=== PATIENT | female | born 1930 | race Asian ===

== ENCOUNTER 2019-01-29 09:08 | Inpatient (IN) | payer MEDICARE, BC ==
[2019-01-29 11:25] LABS: ADD MAN DIFF? NO
[2019-01-29 11:27] LABS: BASOPHIL # 0.1 10^3/ul (0.0-0.1); BASOPHILS % 0.8 % (0.0-2.0); EOSINOPHILS # 0.1 10^3/ul (0.0-0.5); EOSINOPHILS % 1.4 % (0.0-7.0); HEMATOCRIT 39.2 % (37.0-47.0); LYMPHOCYTES # 1.5 10^3/ul (0.8-2.9); LYMPHOCYTES % 17.5 % (15.0-51.0); MEAN CORPUSCULAR HEMOGLOBIN 28.2 pg (29.0-33.0); MEAN CORPUSCULAR HGB CONC 33.2 g/dl (32.0-37.0); MEAN PLATELET VOLUME 10.7 fl (7.4-10.4); MONOCYTE # 0.7 10^3/ul (0.3-0.9); MONOCYTES % 8.2 % (0.0-11.0); NEUTROPHIL # 6.2 10^3/ul (1.6-7.5); NEUTROPHILS % 71.8 % (39.0-77.0); PLATELET COUNT 232 10^3/UL (140-415); RED BLOOD COUNT 4.61 10^6/ul (4.20-5.40); RED CELL DISTRIBUTION WIDTH 13.8 % (11.5-14.5)
[2019-01-29 11:27] LABS: WHITE BLOOD COUNT 8.7 10^3/ul (4.8-10.8)
[2019-01-29 11:48] LABS: ALANINE AMINOTRANSFERASE 28 IU/L (13-69); ALBUMIN/GLOBULIN RATIO 1.17; ALKALINE PHOSPHATASE 114 IU/L (42-121); ANION GAP 11 (5-13); ASPARTATE AMINO TRANSFERASE 39 IU/L (15-46); BILIRUBIN,INDIRECT 0.3 mg/dl (0-1.1); BILIRUBIN,TOTAL 0.3 mg/dl (0.2-1.3); BLOOD UREA NITROGEN 24 mg/dl (7-20); CALCIUM 9.8 mg/dl (8.4-10.2); CARBON DIOXIDE 26 mmol/L (21-31); CHLORIDE 99 mmol/L (97-110); CREATININE 1.02 mg/dl (0.44-1.00); GLUCOSE 161 mg/dl (70-220); POTASSIUM 4.9 mmol/L (3.5-5.1); SODIUM 136 mmol/L (135-144); TOTAL PROTEIN 7.4 g/dl (6.1-8.1)
[2019-01-29 11:52] LABS: INR 0.89; PARTIAL THROMBOPLASTIN TIME 27.8 Sec (23.0-35.0); PROTIME 12.2 Sec (11.9-14.9)
[2019-01-29 11:58] LABS: B-TYPE NATRIURETIC PEPTIDE 448 PG/ML (0-450); TROPONIN-I < 0.012 ng/ml (0.000-0.120)
[2019-01-29] MEDS: ALBUTEROL/IPRATROPIUM (NEB) 3 ML AMP HHN ×3 (15:04→22:06)
[2019-01-29] MEDS: SOD CHLORIDE 0.9% 100 ML (15:07)
[2019-01-29] MEDS ORDERED: ONDANSETRON 4 MG INJ IV ×2 (15:30→16:30)
[2019-01-29] MEDS ORDERED: ACETAMINOPHEN 325 MG TAB PO (15:30)
[2019-01-29] MEDS ORDERED: NACL 0.9% 3 ML SYG IV (16:30)
[2019-01-29] MEDS ORDERED: NITROGLYCERIN (SL) 0.4 MG TAB SL (16:30)
[2019-01-29] MEDS ORDERED: morphine 2 MG INJ IV (16:30)
[2019-01-29] MEDS ORDERED: hydrALAzine 20 MG INJ IV ×2 (16:30→17:30)
[2019-01-29] MEDS: INSULIN ASPART [NOVOLOG] 3 ML PEN SC ×2 (17:00→21:00)
[2019-01-29] MEDS ORDERED: GLUCAGON 1 MG INJ IM (17:00)
[2019-01-29] MEDS ORDERED: DEXTROSE 50% 50 ML SYRINGE IV ×2 (17:00)
[2019-01-29] MEDS ORDERED: GLUCOSE GEL 15 GRAM TUBE PO ×2 (17:00)
[2019-01-29] MEDS ORDERED: GLUCOSE GEL 15 GRAM TUBE BUCCAL (17:00)
[2019-01-29] MEDS: FUROSEMIDE 20 MG INJ IV (17:57)
[2019-01-29 18:04] LABS: FREE T4 (FREE THYROXINE) 1.56 ng/dl (0.85-1.93)
[2019-01-29 18:15] LABS: LACTIC ACID 1.4 mmol/L (0.5-2.0)
[2019-01-29 18:16] LABS: CREATINE KINASE 249 IU/L (23-200)
[2019-01-29 18:28] LABS: CK INDEX 1.5; CK-MB 3.68 ng/ml (0.0-2.4); TROPONIN-I < 0.012 ng/ml (0.000-0.120)
[2019-01-29] MEDS ORDERED: NON-FORMULARY/PATIENT OWN MED (Simvastatin* (Zocor*) 10 MG) PO (21:00)
[2019-01-29] MEDS: ATORVASTATIN 10 MG TAB PO (21:51)
[2019-01-29] MEDS: LEVOFLOXACIN 500MG/D5W (PMX) 100 ML IVPB (21:51)
[2019-01-29] MEDS: GABAPENTIN 100 MG CAP PO (21:52)
[2019-01-29 22:32] LABS: CREATINE KINASE 256 IU/L (23-200)
[2019-01-29] MEDS: LORAZEPAM 2 MG INJ IV (22:34)
[2019-01-29 22:46] LABS: CK INDEX 1.6; CK-MB 4.22 ng/ml (0.0-2.4); TROPONIN-I 0.015 ng/ml (0.000-0.120)
[2019-01-29] MEDS: SOD CHLORIDE 0.9% 500 ML IV (23:56)
[2019-01-30] MEDS: ACETAMINOPHEN 325 MG TAB PO (00:46)
[2019-01-30] MEDS: INSULIN ASPART [NOVOLOG] 3 ML PEN SC ×6 (01:00→20:44)
[2019-01-30] MEDS: ALBUTEROL/IPRATROPIUM (NEB) 3 ML AMP HHN ×3 (01:49→09:48)
[2019-01-30] MEDS: ACCU-CHEK XX (02:00)
[2019-01-30 06:50] LABS: ADD MAN DIFF? NO
[2019-01-30 06:59] LABS: BASOPHIL # 0.1 10^3/ul (0.0-0.1); BASOPHILS % 0.7 % (0.0-2.0); EOSINOPHILS # 0.2 10^3/ul (0.0-0.5); HEMATOCRIT 38.9 % (37.0-47.0); HEMOGLOBIN 12.8 g/dl (12.0-16.0); LYMPHOCYTES # 2.6 10^3/ul (0.8-2.9); LYMPHOCYTES % 26.1 % (15.0-51.0); MEAN CORPUSCULAR HEMOGLOBIN 27.9 pg (29.0-33.0); MEAN CORPUSCULAR HGB CONC 32.9 g/dl (32.0-37.0); MEAN CORPUSCULAR VOLUME 84.9 fl (82.0-101.0); MEAN PLATELET VOLUME 11.1 fl (7.4-10.4); MONOCYTE # 0.8 10^3/ul (0.3-0.9); MONOCYTES % 8.4 % (0.0-11.0); NEUTROPHIL # 6.2 10^3/ul (1.6-7.5); NEUTROPHILS % 62.4 % (39.0-77.0); PLATELET COUNT 226 10^3/UL (140-415); RED BLOOD COUNT 4.58 10^6/ul (4.20-5.40)
[2019-01-30 07:18] LABS: CHOLESTEROL 154 mg/dl (100-200)
[2019-01-30 07:18] LABS: CHOL/HDL RATIO 2.8 RATIO; HDL CHOLESTEROL 54 mg/dl (33-92); LDL CHOLESTEROL,CALCULATED 88 mg/dl; TRIGLYCERIDES 59 mg/dl (0-149)
[2019-01-30 07:29] LABS: ANION GAP 11 (5-13); BLOOD UREA NITROGEN 32 mg/dl (7-20); CARBON DIOXIDE 24 mmol/L (21-31); CHLORIDE 101 mmol/L (97-110); CREATININE 1.31 mg/dl (0.44-1.00); GLUCOSE 108 mg/dl (70-220); MAGNESIUM 1.8 mg/dl (1.7-2.5); PHOSPHORUS 5.2 mg/dl (2.5-4.9); POTASSIUM 4.4 mmol/L (3.5-5.1); SODIUM 136 mmol/L (135-144)
[2019-01-30 07:52] LABS: HEMOGLOBIN A1C 6.8 % (0-5.9)
[2019-01-30] MEDS ORDERED: LEVOFLOXACIN 750MG/D5W (PMX) 150 ML IVPB (09:00)
[2019-01-30] MEDS ORDERED: NON-FORMULARY/PATIENT OWN MED (Cholecalciferol (Vitamin D3) (Vitamin D-3) 2,000 UNIT) PO (09:00)
[2019-01-30] MEDS: FAMOTIDINE 20 MG TAB PO (09:05)
[2019-01-30] MEDS: CHOLECALCIFEROL 2,000 UNIT CAP PO (09:06)
[2019-01-30] MEDS: FUROSEMIDE 20 MG INJ IV (09:06)
[2019-01-30] MEDS: ISOSORBIDE MONONITRATE(SR)30 MG TAB PO (09:06)
[2019-01-30] MEDS: FERROUS SULFATE (EC) 325 MG TAB PO (09:09)
[2019-01-30] MEDS ORDERED: ALBUTEROL/IPRATROPIUM (NEB) 3 ML AMP HHN (11:00)
[2019-01-30 11:41] LABS: ADD UMIC YES; UR ASCORBIC ACID NEGATIVE (NEGATIVE); UR BACTERIA FEW /HPF (NONE SEEN); UR BILIRUBIN (Dip) NEGATIVE (NEGATIVE); UR BLOOD (Dip) NEGATIVE (NEGATIVE); UR CLARITY CLEAR (CLEAR); UR COLOR STRAW (YELLOW); UR GLUCOSE (Dip) NEGATIVE (NEGATIVE); UR KETONES (Dip) NEGATIVE (NEGATIVE); UR LEUKOCYTE ESTERASE (Dip) NEGATIVE Leu/ul (NEGATIVE); UR NITRITE (Dip) NEGATIVE (NEGATIVE); UR RBC 0 /HPF (0-5); UR SPECIFIC GRAVITY (Dip) 1.019 (1.003-1.030); UR SQUAMOUS EPITHELIAL CELL FEW /HPF (FEW); UR TOTAL PROTEIN (Dip) 1+ mg/dl (NEGATIVE); UR UROBILINOGEN (Dip) NEGATIVE (NEGATIVE); UR WBC 1 /HPF (0-5)
[2019-01-30] MEDS: REGADENOSON 0.4 MG/5 ML SYG (12:44)
[2019-01-30] MEDS: HYDROCODONE/APAP (5/325) TAB PO (19:01)
[2019-01-30] MEDS: LEVOFLOXACIN 250MG/D5W (PMX) 50 ML IVPB (20:29)
[2019-01-30] MEDS: ATORVASTATIN 10 MG TAB PO (20:30)
[2019-01-30] MEDS: GABAPENTIN 100 MG CAP PO (20:30)
[2019-01-31] MEDS: ACCU-CHEK XX (01:41)
[2019-01-31] MEDS: HYDROCODONE/APAP (5/325) TAB PO (01:41)
[2019-01-31 06:11] LABS: ADD MAN DIFF? NO
[2019-01-31 06:14] LABS: BASOPHIL # 0.1 10^3/ul (0.0-0.1); BASOPHILS % 0.6 % (0.0-2.0); EOSINOPHILS # 0.4 10^3/ul (0.0-0.5); EOSINOPHILS % 4.5 % (0.0-7.0); HEMATOCRIT 38.7 % (37.0-47.0); HEMOGLOBIN 12.7 g/dl (12.0-16.0); LYMPHOCYTES # 1.9 10^3/ul (0.8-2.9); LYMPHOCYTES % 21.2 % (15.0-51.0); MEAN CORPUSCULAR HEMOGLOBIN 28.3 pg (29.0-33.0); MEAN CORPUSCULAR HGB CONC 32.8 g/dl (32.0-37.0); MEAN CORPUSCULAR VOLUME 86.2 fl (82.0-101.0); MEAN PLATELET VOLUME 10.4 fl (7.4-10.4); MONOCYTE # 0.9 10^3/ul (0.3-0.9); MONOCYTES % 9.7 % (0.0-11.0); NEUTROPHIL # 5.8 10^3/ul (1.6-7.5); NEUTROPHILS % 63.7 % (39.0-77.0); PLATELET COUNT 216 10^3/UL (140-415); RED BLOOD COUNT 4.49 10^6/ul (4.20-5.40); RED CELL DISTRIBUTION WIDTH 13.8 % (11.5-14.5)
[2019-01-31 06:14] LABS: WHITE BLOOD COUNT 9.1 10^3/ul (4.8-10.8)
[2019-01-31 06:32] LABS: ANION GAP 8 (5-13); BLOOD UREA NITROGEN 46 mg/dl (7-20); CALCIUM 8.8 mg/dl (8.4-10.2); CARBON DIOXIDE 26 mmol/L (21-31); CHLORIDE 97 mmol/L (97-110); CREATININE 1.56 mg/dl (0.44-1.00); GLUCOSE 114 mg/dl (70-220); POTASSIUM 4.1 mmol/L (3.5-5.1); SODIUM 131 mmol/L (135-144)
[2019-01-31] MEDS: INSULIN ASPART [NOVOLOG] 3 ML PEN SC ×4 (07:25→21:00)
[2019-01-31] MEDS: FERROUS SULFATE (EC) 325 MG TAB PO (08:14)
[2019-01-31] MEDS: FAMOTIDINE 20 MG TAB PO (08:14)
[2019-01-31] MEDS: CHOLECALCIFEROL 2,000 UNIT CAP PO (08:14)
[2019-01-31] MEDS: ISOSORBIDE MONONITRATE(SR)30 MG TAB PO (08:14)
[2019-01-31] MEDS: FUROSEMIDE 20 MG INJ IV (08:14)
[2019-01-31] MEDS: ALBUTEROL/IPRATROPIUM (NEB) 3 ML AMP HHN ×2 (14:15→19:49)
[2019-01-31] MEDS: ATORVASTATIN 10 MG TAB PO (21:13)
[2019-01-31] MEDS: LEVOFLOXACIN 250MG/D5W (PMX) 50 ML IVPB (21:13)
[2019-01-31] MEDS: GABAPENTIN 100 MG CAP PO (21:13)
[2019-02-01] MEDS: ACCU-CHEK XX (02:00)
[2019-02-01] MEDS: ALBUTEROL/IPRATROPIUM (NEB) 3 ML AMP HHN ×4 (03:27→19:44)
[2019-02-01 06:40] LABS: ADD MAN DIFF? NO
[2019-02-01 06:48] LABS: BASOPHIL # 0.1 10^3/ul (0.0-0.1); BASOPHILS % 0.5 % (0.0-2.0); EOSINOPHILS # 0.4 10^3/ul (0.0-0.5); EOSINOPHILS % 3.7 % (0.0-7.0); HEMOGLOBIN 13.3 g/dl (12.0-16.0); LYMPHOCYTES # 1.9 10^3/ul (0.8-2.9); LYMPHOCYTES % 16.9 % (15.0-51.0); MEAN CORPUSCULAR HEMOGLOBIN 27.8 pg (29.0-33.0); MEAN CORPUSCULAR HGB CONC 32.4 g/dl (32.0-37.0); MEAN CORPUSCULAR VOLUME 85.6 fl (82.0-101.0); MEAN PLATELET VOLUME 10.9 fl (7.4-10.4); MONOCYTE # 1.2 10^3/ul (0.3-0.9); MONOCYTES % 10.9 % (0.0-11.0); NEUTROPHIL # 7.6 10^3/ul (1.6-7.5); NEUTROPHILS % 67.6 % (39.0-77.0); PLATELET COUNT 214 10^3/UL (140-415); RED BLOOD COUNT 4.79 10^6/ul (4.20-5.40); RED CELL DISTRIBUTION WIDTH 13.8 % (11.5-14.5)
[2019-02-01 06:48] LABS: WHITE BLOOD COUNT 11.3 10^3/ul (4.8-10.8)
[2019-02-01 07:25] LABS: ANION GAP 8 (5-13); BLOOD UREA NITROGEN 43 mg/dl (7-20); CALCIUM 8.9 mg/dl (8.4-10.2); CARBON DIOXIDE 24 mmol/L (21-31); CHLORIDE 102 mmol/L (97-110); GLUCOSE 151 mg/dl (70-220); SODIUM 134 mmol/L (135-144)
[2019-02-01] MEDS: INSULIN ASPART [NOVOLOG] 3 ML PEN SC ×2 (08:13→12:14)
[2019-02-01] MEDS: FAMOTIDINE 20 MG TAB PO (09:55)
[2019-02-01] MEDS: ISOSORBIDE MONONITRATE(SR)30 MG TAB PO (09:56)
[2019-02-01] MEDS: METOPROLOL (XL) 25 MG TAB PO (09:56)
[2019-02-01] MEDS: CHOLECALCIFEROL 2,000 UNIT CAP PO (09:57)
[2019-02-01] MEDS: FERROUS SULFATE (EC) 325 MG TAB PO (09:57)
[2019-02-01] MEDS ORDERED: NITROFURANTOIN (SR) 100 MG CAP PO (10:30)
[2019-02-01] MEDS: DOCUSATE SODIUM 100 MG CAP PO (10:36)
[2019-02-01] MEDS: MAGNESIUM HYDROXIDE 30ML CUP PO (10:36)
[2019-02-01] MEDS ORDERED: TRIMETHOPRIM/SULFAMETHOX (SS) TAB PO (12:30)
[2019-02-01] MEDS: TRIMETHOPRIM/SULFAMETHOX (DS) TAB PO (13:41)
[2019-02-01] MEDS: Insulin NOVOLOG SS MILD Algorithm (SS with meals and bedtime) SC ×2 (17:58→21:00)
[2019-02-01] MEDS ORDERED: ACCUCHECK 2 HOURS AFTER FIRST BITE XX (19:55)
[2019-02-01] MEDS: GABAPENTIN 100 MG CAP PO (21:24)
[2019-02-01] MEDS: ATORVASTATIN 10 MG TAB PO (21:24)
[2019-02-02] MEDS: ACCU-CHEK XX (02:00)
[2019-02-02] MEDS ORDERED: ACCUCHECK AT 2AM (Patients on SS coverage) XX (02:00)
[2019-02-02] MEDS: ALBUTEROL/IPRATROPIUM (NEB) 3 ML AMP HHN ×3 (02:25→13:54)
[2019-02-02 06:53] LABS: ADD MAN DIFF? NO
[2019-02-02 06:56] LABS: BASOPHIL # 0.1 10^3/ul (0.0-0.1); BASOPHILS % 0.6 % (0.0-2.0); EOSINOPHILS # 0.6 10^3/ul (0.0-0.5); EOSINOPHILS % 6.1 % (0.0-7.0); HEMATOCRIT 40.5 % (37.0-47.0); LYMPHOCYTES % 18.7 % (15.0-51.0); MEAN CORPUSCULAR HEMOGLOBIN 27.8 pg (29.0-33.0); MEAN CORPUSCULAR HGB CONC 32.1 g/dl (32.0-37.0); MEAN CORPUSCULAR VOLUME 86.5 fl (82.0-101.0); MEAN PLATELET VOLUME 11.1 fl (7.4-10.4); MONOCYTES % 9.6 % (0.0-11.0); NEUTROPHIL # 6.8 10^3/ul (1.6-7.5); NEUTROPHILS % 64.6 % (39.0-77.0); PLATELET COUNT 200 10^3/UL (140-415); RED BLOOD COUNT 4.68 10^6/ul (4.20-5.40); RED CELL DISTRIBUTION WIDTH 13.8 % (11.5-14.5)
[2019-02-02 06:56] LABS: WHITE BLOOD COUNT 10.5 10^3/ul (4.8-10.8)
[2019-02-02 07:30] LABS: ANION GAP 8 (5-13); BLOOD UREA NITROGEN 34 mg/dl (7-20); CALCIUM 9.2 mg/dl (8.4-10.2); CARBON DIOXIDE 27 mmol/L (21-31); CHLORIDE 98 mmol/L (97-110); CREATININE 1.33 mg/dl (0.44-1.00); GLUCOSE 163 mg/dl (70-220); POTASSIUM 4.4 mmol/L (3.5-5.1); SODIUM 133 mmol/L (135-144)
[2019-02-02] MEDS: Insulin NOVOLOG SS MILD Algorithm (SS with meals and bedtime) SC ×2 (08:24→13:32)
[2019-02-02] MEDS: FERROUS SULFATE (EC) 325 MG TAB PO (10:38)
[2019-02-02] MEDS: CHOLECALCIFEROL 2,000 UNIT CAP PO (10:38)
[2019-02-02] MEDS: TRIMETHOPRIM/SULFAMETHOX (DS) TAB PO (10:38)
[2019-02-02] MEDS: ISOSORBIDE MONONITRATE(SR)30 MG TAB PO (10:38)
[2019-02-02] MEDS: METOPROLOL (XL) 25 MG TAB PO (10:39)
[2019-02-02] MEDS: FAMOTIDINE 20 MG TAB PO (10:42)
[2019-02-02 12:56] LABS: TROPONIN-I < 0.012 ng/ml (0.000-0.120)
== END 2019-02-02 14:38 | DRG 191 ==
LOC: E/R 09:08 → TEL 15:16
DX: J44.0 Chronic obstructive pulmonary disease with (acute) lower respiratory infection (principal); J45.901 Unspecified asthma with (acute) exacerbation; N17.9 Acute kidney failure, unspecified; J20.9 Acute bronchitis, unspecified; J44.1 Chronic obstructive pulmonary disease with (acute) exacerbation; M81.0 Age-related osteoporosis without current pathological fracture; D64.9 Anemia, unspecified; E78.00 Pure hypercholesterolemia, unspecified; I11.0 Hypertensive heart disease with heart failure; I50.9 Heart failure, unspecified; E11.40 Type 2 diabetes mellitus with diabetic neuropathy, unspecified; Z79.4 Long term (current) use of insulin; Z79.82 Long term (current) use of aspirin; Z79.84 Long term (current) use of oral hypoglycemic drugs
CPT/HCPCS: 71045; 71275; 78452; 80048; 80053; 80061; 81001; 82550; 82553; 82962; 83036; 83605; 83735; 83880; 84100; 84439; 84443; 84484; 85025; 85610; 85730; 87086; 92610; 93005; 93017; 93306; 94640; 94664; 97116; 97161; 97165; 97530; 97535